=== PATIENT | male | born 1995 | race Caucasian/White ===

== ENCOUNTER 2018-01-14 09:43 | Emergency (ER) | payer OTHER ==
[~2018-01-14] VITALS: Ht 167.6 cm; Wt 68.9 kg
[2018-01-14 09:43] VITALS: BP_SYST 134
[2018-01-14] MEDS ORDERED: DIPH-TET-PERTUS Vaccine 0.5 ML VIAL (ADACEL) I.M. ONE (10:30)
[2018-01-14] MEDS ORDERED: LIDOCAINE 1% 10 MG/ML, 20 ML MDV IJ ONE (11:00)
[2018-01-14] MEDS ORDERED: BACITRACIN 1 GM OINT TP ONE (11:00)
[2018-01-14 11:30] VITALS: BP_SYST 123
== END 2018-01-14 11:30 | disposition home or self-care (01) ==
LOC: SED 09:43
DX: S61.210A Laceration without foreign body of right index finger without damage to nail, initial encounter (principal); R03.0 Elevated blood-pressure reading, without diagnosis of hypertension; W27.8XXA Contact with other nonpowered hand tool, initial encounter; Y93.89 Activity, other specified; Y92.69 Other specified industrial and construction area as the place of occurrence of the external cause; Y99.8 Other external cause status
CPT/HCPCS: 12001; 90471; 90715; 99283; J2001